=== PATIENT | female | born 1990 | race Caucasian/White ===

== ENCOUNTER 2017-11-29 21:14 | Emergency (ER) | payer OTHER, SELFPAY ==
--- NOTE | 2017-11-29 21:17 | ED_ITS ---
HPI - Extremity Injury (Upper) <ELLA Ng - Last Filed: 11/29/17 22:23> General Chief Complaint: Extremity Injury, Upper Stated Complaint: RIGHT HAND INJURY Time Seen by Provider: 11/29/17 21:17 Source: patient Mode of arrival: ambulatory Limitations: no limitations History of Present Illness HPI narrative: healthy 27-year-old female that is a nonsmoker here for complaint of pain into her right 2nd 3rd and 4th fingers at closed in a door frame earlier today. She denies any other injuries. She reports increased pain with that and movement his fingers. No open lesions. No other concerns or complaints at this time Review of Systems <ELLA Ng - Last Filed: 11/29/17 22:23> Constitutional Denies chills, Denies fever(s), Denies lethargy and Denies weakness Eyes Denies change in vision, Denies eye discharge, Denies irritation and Denies loss of vision ENT Ears, Nose, Mouth, and Throat: Denies change in voice, Denies neck pain and Denies sore throat Cardiovascular Denies chest pain, Denies irregular heart rhythm, Denies lightheadedness, Denies palpitations, Denies dyspnea, Denies dyspnea on exertion and Denies orthopnea Respiratory Denies cough, Denies dyspnea, Denies dyspnea on exertion and Denies wheezing Gastrointestinal Gastrointestinal: Denies abdominal pain, Denies change in bowel habits, Denies diarrhea, Denies nausea and Denies vomiting Genitourinary Denies hematuria, Denies flank pain, Denies urinary incontinence and Denies urinary urgency Musculoskeletal Denies neck pain Comments: pain into right finger Neurologic Denies confusion, Denies loss of vision and Denies weakness Psychiatric Denies anxiety, Denies confusion, Denies depression, Denies homicidal ideation and Denies suicidal ideation Endocrine Denies palpitations Hematologic/Lymphatic Denies easy bruising Allergic/Immunologic Denies wheezing Exam <ELLA Ng - Last Filed: 11/29/17 22:23> Initial Vital Signs Initial Vital Signs: Vital Signs Temperature 97.9 F 11/29/17 21:41 Pulse Rate 69 11/29/17 21:41 Respiratory Rate 18 11/29/17 21:41 Blood Pressure 125/72 11/29/17 21:41 Pulse Oximetry 100 11/29/17 21:41 Const General: cooperative and well developed Nutritional Appearance: well nourished Orientation: alert, awake, oriented x3 and not confused [facility] Mouth: oral mucosae normal and oropharynx normal Eyes General: appearance normal, both eyes and all related structures Eyelids: eyelids normal Conjunctivae: conjunctivae normal Sclera: sclerae normal Pupils: PERRL EOM: EOM intact bilaterally Resp Effort & Inspection: normal respiratory effort, able to speak in complete sentences, no respiratory distress and no use of accessory muscles Auscultation: clear to auscultation bilaterally, no rales, no rhonchi and no wheezes Cardio Rate: regular rate Rhythm: regular rhythm Heart Sounds: no click, no gallops, no murmurs and no rubs Pulses: normal peripheral pulses Skin General: no rashes or lesions noted, No jaundice and No petechiae Neuro General: alert, oriented x3, gait normal and no focal motor deficits Speech: speech normal Extrem Other: right hand with no signs of trauma. No open lesions. No ecchymosis no swelling. Distal sensation is intact. Distal cap refill less than 2 sec. Patient has full range of motion. <Julianne Pagan DO - Last Filed: 11/30/17 06:22> Initial Vital Signs Initial Vital Signs: Vital Signs Temperature 97.9 F 11/29/17 21:41 Pulse Rate 69 11/29/17 21:41 Respiratory Rate 18 11/29/17 21:41 Blood Pressure 125/72 11/29/17 21:41 Pulse Oximetry 100 11/29/17 21:41 Course <ELLA Ng - Last Filed: 11/29/17 22:23> Orders Ordered: ED Orders 11/29/17 21:36 XR hand RT min 3V Stat Vital Signs - 8 hr 11/29/17 21:41 Temperature 97.9 F Pulse Rate 69 Respiratory Rate 18 Blood Pressure 125/72 Pulse Oximetry 100 <DO Jose Langford Last Filed: 11/30/17 06:22> Orders Ordered: ED Orders 11/29/17 21:36 XR hand RT min 3V Stat Vital Signs - 8 hr 11/29/17 21:41 Temperature 97.9 F Pulse Rate 69 Respiratory Rate 18 Blood Pressure 125/72 Pulse Oximetry 100 MDM - Extremity Injury (Upper) <ELLA Ng - Last Filed: 11/29/17 22:23> Imaging Data hand: Radiologist's impression: [address] [address] XRay Report Signed Patient: LUIS ALBERTO MAHER CMR#: [id number] : 1990Acct:[id number] Age/Sex: 27 / FDate of Service: 11/29/17 Loc: ED Accession Number: [id number] Procedure: XR hand RT min 3V Ordering Provider: Asad Hand PROCEDURE: XR HAND RT MIN 3V INDICATIONS: Smashed hand in door, digits 3 and 4 injury TECHNIQUE: 3 views of the hand(s) acquired. COMPARISON: None. FINDINGS: Bones: No fractures or dislocations. Carpal bones are normally aligned. No suspicious bony lesions. Soft tissues: No suspicious soft tissue calcifications. IMPRESSION: No fracture. No osseous lesion. If there are persistent symptoms or clinical suspicion for pathology, then repeat radiographs or advanced imaging (CT, MRI or bone scan) should be considered for further evaluation. Dictated by: Lilibeth Hayes MD, PhD on 11/29/2017 at 21:58 Approved by: Lilibeth Hayes MD, PhD on 11/29/2017 at 21:[address] [facility] Narrative Medical decision making narrative: X-ray of the right hand was obtained and was negative for any acute fractures. Signs symptoms presents as contusions to the fingers of the right hand. Use [id number] ibuprofen as needed for any discomfort. Ice and elevation help knee swelling. Past area. Follow up with primary care provider next week for re-evaluation. For any worsening symptoms return to the emergency room. Discharge Plan Departure Patient Disposition: Home Clinical Impression: Contusion of finger, right Discharge Date/Time: 11/29/17 22:15 Interventions: ED Discharge Assessment Last Done: 11/29/17 22:15 Instructions: DI for Contusion Activity Restrictions/Additional Instructions: X-ray of the right hand was obtained and was negative for any acute fractures. Signs symptoms presents as contusions to the fingers of the right hand. Use [id number] ibuprofen as needed for any discomfort. Ice and elevation help knee swelling. Past area. Follow up with primary care provider next week for re-evaluation. For any worsening symptoms return to the emergency room. Referrals: [facility] [Provider Group] <Julianne Pagan, DO - Last Filed: 11/30/17 06:22> Cosign ED Attending Cosignature Attestation: I was immediately available in the department for consultation. Documentation has been reviewed. I agree with assessment and plan.
--- NOTE | 2017-11-29 21:36 | DI.RAD.S_ITS ---
PROCEDURE: XR HAND RT MIN 3V INDICATIONS: Smashed hand in door, digits 3 and 4 injury TECHNIQUE: 3 views of the hand(s) acquired. COMPARISON: None. FINDINGS: Bones: No fractures or dislocations. Carpal bones are normally aligned. No suspicious bony lesions. Soft tissues: No suspicious soft tissue calcifications. IMPRESSION: No fracture. No osseous lesion. If there are persistent symptoms or clinical suspicion for pathology, then repeat radiographs or advanced imaging (CT, MRI or bone scan) should be considered for further evaluation. Dictated by: Lilibeth Hayes MD, PhD on 11/29/2017 at 21:58 Approved by: Lilibeth Hayes MD, PhD on 11/29/2017 at 21:58
[2017-11-29 21:41] VITALS: BP 125/72; PULSE 69; RESP 18; TEMP 36.6; O2SAT 100; BMI 21.2
== END 2017-11-29 22:15 | disposition home or self-care (01) ==
PROVIDERS: Emergency Provider Nurse Practitioner Family
DX: S60.041A Contusion of right ring finger without damage to nail, initial encounter (principal); S60.031A Contusion of right middle finger without damage to nail, initial encounter; W23.0XXA Caught, crushed, jammed, or pinched between moving objects, initial encounter
CPT/HCPCS: 73130; 99282; 99283

== ENCOUNTER 2018-01-31 17:51 | Emergency (ER) | payer SELFPAY ==
[2018-01-31 17:57] VITALS: BP 142/83; PULSE 106; RESP 15; TEMP 36.6; O2SAT 100; BMI 21.2
--- NOTE | 2018-01-31 18:18 | DI.RAD.S_ITS ---
PROCEDURE: XR FINGER LT MIN 2V INDICATIONS: dog bite, numbness TECHNIQUE: AP hand, 2 views of the left first finger(s) acquired. COMPARISON: None FINDINGS: Bones: No fractures or dislocations. No suspicious bony lesions. Soft tissues: No suspicious soft tissue calcifications. IMPRESSION: No acute fracture. No osseous lesion. If clinical suspicion and/or symptoms persist, further assessment with repeat plainfilms, or advanced imaging (e.g., CT, MRI, or bone scan) may be helpful for further assessment. Dictated by: Shannan Edwards M.D. on 01/31/2018 at 18:55 Approved by: Shannan Edwards M.D. on 01/31/2018 at 18:55
[2018-01-31] MEDS: TET,DIPH,PERTUSS(ACELL),VAC/PF 0.5 ML SYRINGE IM (18:37)
[2018-01-31] MEDS: AMOXICILLIN/CLAV 875/125 MG 1 TAB PO (18:40)
--- NOTE | 2018-01-31 19:43 | ED_ITS ---
HPI - Animal Bite General Chief Complaint: Animal Bite Stated Complaint: GOT IN THE MIDDLE OF DOG FIGHT Time Seen by Provider: 01/31/18 18:14 Source: patient and family Mode of arrival: ambulatory Limitations: no limitations History of Present Illness HPI narrative: 27-year-old nonsmoking female presents with a chief complaint of dog bites suffered when she got between to fighting dogs. One of the dogs was hers and is fully immunized and the other is owned by a friend. She suffered a bite to her left thumb and also was bitten on her right forearm. Her tetanus is not current. The dogs were acting appropriately up until when they started fighting and are able to be observed in the aftermath. Patient does have pain in her left thumb which hurts worse with motion. She is otherwise well and free of complaint MD complaint: animal bite Onset (ago): hour(s) Animal: dog Description of animal: household pet Mechanism: bite Left: hand and Right: forearm Context: animals fighting Treatments prior to arrival: wound dressing(s) Related Data Patient tetanus UTD: No Previous Rx's Medication Instructions Recorded amoxicillin-pot clavulanate 1 tab PO BID #20 tab 01/31/18 [Augmentin] Allergies Allergy/AdvReac Type Severity Reaction Status Date / Time No Known Drug Allergies Allergy Verified 01/31/18 17:57 Review of Systems Review of Systems All systems reviewed & are unremarkable except as noted in HPI and below Constitutional Denies chills, Denies fever(s), Denies lethargy and Denies weakness Eyes Denies change in vision, Denies eye discharge, Denies irritation and Denies loss of vision ENT Ears, Nose, Mouth, and Throat: Denies change in voice, Denies neck pain and Denies sore throat Cardiovascular Denies chest pain, Denies irregular heart rhythm, Denies lightheadedness, Denies palpitations, Denies dyspnea, Denies dyspnea on exertion and Denies orthopnea Respiratory Denies cough, Denies dyspnea, Denies dyspnea on exertion and Denies wheezing Gastrointestinal Gastrointestinal: Denies abdominal pain, Denies change in bowel habits, Denies diarrhea, Denies nausea and Denies vomiting Genitourinary Denies hematuria, Denies flank pain, Denies urinary incontinence and Denies urinary urgency Musculoskeletal Denies neck pain Integumentary/Breasts Denies pruritus, Reports erythema, Denies rash and Reports wounds Neurologic Denies confusion, Denies loss of vision and Denies weakness Psychiatric Denies anxiety, Denies confusion, Denies depression, Denies homicidal ideation and Denies suicidal ideation Endocrine Denies palpitations Hematologic/Lymphatic Denies easy bruising Allergic/Immunologic Denies wheezing Exam Narrative Exam Narrative: 27-year-old female is tearful, obviously upset and some pain Initial Vital Signs Initial Vital Signs: Vital Signs Temperature 97.8 F 01/31/18 17:57 Pulse Rate 106 H 01/31/18 17:57 Respiratory Rate 15 01/31/18 17:57 Blood Pressure 142/83 H 01/31/18 17:57 Pulse Oximetry 100 01/31/18 17:57 Const General: cooperative and well developed Nutritional Appearance: well nourished Orientation: alert, awake, oriented x3 and not confused HENMT Head: normocephalic and atraumatic Ears: external ears normal and TM's normal bilaterally Nose: external nose normal and No nasal discharge Face and sinus: sinuses nontender, face symmetric, no sinus tenderness and No dry mucous membranes Mouth: oral mucosae normal and moist mucous membranes Teeth and gingiva: dentition normal Throat: tonsils normal and uvula midline Chest Chest: normal inspection of the chest Resp Effort & Inspection: normal respiratory effort, able to speak in complete sentences, no respiratory distress and no use of accessory muscles Auscultation: clear to auscultation bilaterally, no rales, no rhonchi and no wheezes GI Inspection: non-distended Palpation: soft, no hepatosplenomegaly, No guarding, No pulsatile mass and No tender Auscultation: normal bowel sounds Back/Spine/Pelvis Back: No CVA tenderness Cervical Spine: cervical ROM normal and No pain with cervical ROM Thoracic/Lumbar Spine: thoracic and lumbar spine normal to inspection Skin Trauma: puncture Neuro General: alert, oriented x3, gait normal and no focal motor deficits Speech: speech normal Extrem Left upper extremity: hand (Patient has a puncture wound to the pad of the left thumb and maybe some cuticle involvement. There is no active bleeding. There is no open or gaping wound.) Course Orders Ordered: ED Orders 01/31/18 18:18 XR finger LT min 2V Stat Discontinued Medications Amoxicillin/Clavulanate Potassium (Augmentin 875-125 Mg) 1 tab PO NOW ONE Stop: 01/31/18 18:19 Last Admin: 01/31/18 18:40 Dose: 1 tab Diphtheria/Tetanus/Acell Pertussis (Adacel) 0.5 ml IM .ONCE ONE Stop: 01/31/18 18:19 Last Admin: 01/31/18 18:37 Dose: 0.5 ml Vital Signs - 8 hr 01/31/18 17:57 Temperature 97.8 F Pulse Rate 106 H Respiratory Rate 15 Blood Pressure 142/83 H Pulse Oximetry 100 Discharge Plan Departure Patient Disposition: Home Clinical Impression: Dog bite Discharge Date/Time: 01/31/18 19:40 Interventions: ED Discharge Assessment Last Done: 01/31/18 19:40 Instructions: DI for Dog Bite Activity Restrictions/Additional Instructions: *You have been diagnosed with [ dog bite ] *What to do: *Take medications as directed *Follow up with your primary care provider in 2-3 days, call for an appointment. Let them know you were seen in the Emergency Department and that we ask that you be seen in follow up *Return to ER if you should have any new, worsening or concerning symptoms , such as [ increasing pain, swelling, drainage or other bothersome symptoms] Prescriptions: New amoxicillin-pot clavulanate [Augmentin] 875-125 mg tablet 1 tab PO BID Qty: 20 RF: 0
== END 2018-01-31 19:40 | disposition home or self-care (01) ==
PROVIDERS: Emergency Provider Emergency Medicine
DX: S61.452A Open bite of left hand, initial encounter (principal); W54.0XXA Bitten by dog, initial encounter
CPT/HCPCS: 73140; 90471; 99282; 99283; 90715

== ENCOUNTER 2019-01-05 21:05 | Emergency (ER) | payer OTHER, MEDICAID, SELFPAY ==
[2019-01-05 21:14] VITALS: BP 143/73; PULSE 96; RESP 18; TEMP 37.2; O2SAT 100; BMI 19.8
[2019-01-05 21:35] LABS: Add Manual Diff / Slide Review NO; Basophils Absolute Auto 100 /uL (0-100); Basophils Percent Auto 0.7 % (0-2); Eosinophils Absolute Auto 0 /uL (0-450); Hematocrit 45.7 % (36-46); Hemoglobin 15.6 g/dL (12.0-16.0); Lymphocytes Absolute Auto 1700 /uL (1100-4500); Lymphocytes Percent Auto 16.3 % (25-40); Mean Corpuscular HGB Conc 34.1 % (30-36); Mean Corpuscular Hemoglobin 29.2 PG (26-34); Mean Corpuscular Volume 85.6 fL (80-100); Monocytes Absolute Auto 1000 /uL (0-900); Monocytes Percent Auto 9.9 % (3-14); Neutrophils Absolute Auto 7500 /uL (1500-7000); Neutrophils Percent Auto 73.1 % (50-75); Platelet Count 385 X10^3/uL (150-400); Red Blood Cell Count 5.34 X10^6/uL (4.0-5.2); Red Cell Distribution Width 13.6 % (11.6-14.8); White Blood Cell Count 10.3 X10^3/uL (4.5-11.0)
[2019-01-05] MEDS: SODIUM CHLORIDE 0.9% 1,000 ML 1000 ML IV (21:38)
[2019-01-05] MEDS: ONDANSETRON 4 MG/2 ML INJ IV (21:38)
[2019-01-05 21:40] LABS: Alanine Aminotransferase 31 IU/L (9-52); Albumin 4.5 g/dL (3.5-5.0); Albumin Globulin Ratio 1.2 (1.0-2.8); Alkaline Phosphatase 87 U/L (38-126); Aspartate Aminotransferase 32 IU/L (14-36); Bilirubin Total 0.3 mg/dL (0.2-1.3); Blood Urea Nitrogen 10 mg/dL (7-17); Calcium 9.1 mg/dL (8.4-10.2); Carbon Dioxide 26 mmol/L (22-32); Chloride 105 mmol/L (98-107); Estimated Glomerular Filt Rate > 60.0 mL/min (>60); Globulin 3.9 g/dL (1.7-4.1); Glucose 101 mg/dL (70-100); HEMOLYSIS < 15 (0-50); Lipase 168 U/L (23-300); Potassium 3.6 mmol/L (3.4-5.1); Sodium 142 mmol/L (137-145); Total Protein 8.4 g/dL (6.3-8.2)
[2019-01-05 21:47] LABS: Influenza A and B by PCR Rapid Negative (Negative)
[2019-01-05 22:00] VITALS: BP 101/79; PULSE 71; RESP 17; O2SAT 100
--- NOTE | 2019-01-05 22:11 | ED.ABDPAIN ---
HPI - Abdominal Pain General Chief Complaint: Abdominal Pain Stated Complaint: VOMITING COUGH FEVER Time Seen by Provider: 01/05/19 21:23 Source: patient Mode of arrival: Ambulatory Limitations: no limitations History of Present Illness HPI narrative: Patient comes emergency department complaining ?not feeling well? for 2 days. She states she has had fevers which were not measured and that she was ?delirious? last night. Patient states she has had a sore throat and a cough, and that she started vomiting today. Patient was seen by medics on [facility] who told her to come to the emergency department to get checked out. Patient's father states the patient has had an opiate problem, but patient refuses to talk about this or offer further information. No other complaints at this time. Related Data Previous Rx's Medication Instructions Recorded amoxicillin-pot clavulanate 1 tab PO BID #20 tab 01/31/18 [Augmentin] ondansetron 4 mg PO Q6H PRN #14 tab 01/06/19 Allergies Allergy/AdvReac Type Severity Reaction Status Date / Time No Known Drug Allergies Allergy Verified 01/05/19 21:16 Review of Systems Constitutional Constitutional: Denies chills, Denies fatigue, Denies fever(s), Denies frequent falls, Denies lethargy and Denies weakness Eyes Eyes: Denies change in vision, Denies eye discharge, Denies irritation and Denies loss of vision ENT Ears, Nose, Mouth, and Throat: Denies change in voice, Denies dizziness, Denies neck pain, Denies sore throat and Denies throat swelling Comments: Rhinorrhea Cardiovascular Cardiovascular: Denies chest pain, Denies irregular heart rhythm, Denies lightheadedness, Denies palpitations, Denies dyspnea, Denies dyspnea on exertion and Denies orthopnea Respiratory Respiratory: Reports cough, Denies dyspnea, Denies dyspnea on exertion and Denies wheezing Gastrointestinal Gastrointestinal: Denies abdominal pain, Denies change in bowel habits, Denies diarrhea, Reports nausea and Reports vomiting Genitourinary Genitourinary: Denies hematuria, Denies flank pain, Denies urinary incontinence and Denies urinary urgency Musculoskeletal Musculoskeletal: Denies back pain, Denies muscle weakness, Denies neck pain, Denies numbness and Denies tingling Integumentary/Breasts Skin/Breast: Denies pruritus, Denies erythema, Denies rash and Denies wounds Neurologic Neurologic: Denies behavioral changes, Denies confusion, Denies dizziness, Denies frequent falls, Denies loss of vision, Denies numbness, Denies tingling and Denies weakness Psychiatric Psychiatric: Denies anxiety, Denies behavioral changes, Denies confusion, Denies depression, Denies homicidal ideation and Denies suicidal ideation Endocrine Endocrine: Denies fatigue, Denies flushing and Denies palpitations Hematologic/Lymphatic Hematologic/Lymphatic: Denies easy bruising Allergic/Immunologic Allergic/Immunologic: Denies urticaria, Denies throat swelling and Denies wheezing Patient History Medical History Healthy adult (Acute) Surgical History No pertinent past surgical history (Acute) Social History Smoking Status: Never smoker substance use type: opiates Substance Use Type: does not use Exam Initial Vital Signs Initial Vital Signs: Vital Signs Temperature 98.9 F 01/05/19 21:14 Pulse Rate 96 H 01/05/19 21:14 Respiratory Rate 18 01/05/19 21:14 Blood Pressure 143/73 H 01/05/19 21:14 Pulse Oximetry 100 01/05/19 21:14 Const General: cooperative and well developed Nutritional Appearance: well nourished Orientation: alert, awake, oriented x3 and not confused HENRI Head: normocephalic and atraumatic Ears: external ears normal and TM's normal bilaterally Nose: external nose normal and No nasal discharge Face and sinus: sinuses nontender, face symmetric, no sinus tenderness and No dry mucous membranes Mouth: oral mucosae normal and moist mucous membranes Teeth and gingiva: dentition normal Throat: tonsils normal and uvula midline Eyes General: appearance normal, both eyes and all related structures Eyelids: eyelids normal Conjunctivae: conjunctivae normal Sclera: sclerae normal Pupils: PERRL EOM: EOM intact bilaterally Neck Neck: normal visual inspection, trachea midline, No lymphadenopathy, No midline deformity and No JVD Lymphatic: No lymphedema Chest Chest: normal inspection of the chest Resp Effort & Inspection: normal respiratory effort, able to speak in complete sentences, no respiratory distress and no use of accessory muscles Auscultation: clear to auscultation bilaterally, no rales, no rhonchi and no wheezes Cardio Rate: regular rate Rhythm: regular rhythm Heart Sounds: no click, no gallops, no murmurs and no rubs Pulses: normal peripheral pulses GI Inspection: non-distended Palpation: soft, no hepatosplenomegaly, No guarding, No pulsatile mass and No tender Auscultation: normal bowel sounds Back/Spine/Pelvis Back: No CVA tenderness Cervical Spine: cervical ROM normal and No pain with cervical ROM Thoracic/Lumbar Spine: thoracic and lumbar spine normal to inspection Skin General: no rashes or lesions noted, No jaundice and No petechiae Neuro General: alert, oriented x3, gait normal and no focal motor deficits Speech: speech normal Extrem General: full ROM, no clubbing, cyanosis or edema, no pedal edema and no calf tenderness Psych Appearance: well kempt Mental Status: mental status grossly normal Attitude: cooperative Thought Content: normal and suicidality Judgment: judgment good Course Course Course Narrative: Patient was treated symptomatically in the emergency department IV fluids, Zofran, Compazine, and Benadryl. She reported not feeling any better, although she was found to be bright-eyed, sitting up in bed, and tolerating p.o. fluids without any retching. I discussed with patient that at this point she most likely has a virus. Her labs are normal and she is afebrile here. Her abdominal exam is benign. I have discussed with the patient that if there is any relation to opiate use, it will be impossible for me to be able to accurately represent to this to the patient, or to help her to get better, as she has not been willing to discuss at all whether she is currently engaged in opiate abuse or withdrawing from opiates. We have discussed clear liquid diet for the next 24 hours and dietary advancement following that, should the patient tolerate clears. We have discussed the usual indications for return. Nursing staff did report to me that the patient left her paperwork and her prescription for antiemetics. Nursing staff did try to call the patient, but stated that the patient answered, said something, and hung up on the nurse. Orders Ordered: Discontinued Medications Diphenhydramine HCl (Benadryl) 25 mg IV NOW ONE Stop: 01/05/19 22:14 Last Admin: 01/05/19 22:19 Dose: 25 mg Documented by: CARINA Sodium Chloride (Normal Saline 0.9%) 1,000 mls @ 1,000 mls/hr IV BOLUS ONE Stop: 01/05/19 22:25 Last Infusion: 01/05/19 23:11 Dose: 0 mls/hr Documented by: Admin: 01/05/19 21:38 Dose: 1,000 mls/hr Documented by: CARINA Ondansetron HCl (Zofran) 4 mg IV NOW ONE Stop: 01/05/19 21:27 Last Admin: 01/05/19 21:38 Dose: 4 mg Documented by: CARINA Ondansetron HCl (Zofran Odt Prepack) 1 bottle MISC SEEINSTR ONE Stop: 01/06/19 00:03 Last Admin: 01/06/19 00:18 Dose: Not Given Documented by: CARINA Prochlorperazine (Compazine) 10 mg IV NOW ONE Stop: 01/05/19 22:14 Last Admin: 01/05/19 22:17 Dose: 10 mg Documented by: CARINA Promethazine HCl (Phenergan 25 Mg Prepack) 1 bottle MISC SEEINSTR ONE Stop: 01/06/19 00:03 Last Admin: 01/06/19 00:18 Dose: Not Given Documented by: CARINA Vital Signs Vital signs: Vital Signs - 8 hr 01/05/19 22:30 01/06/19 00:09 Temperature 98.7 F Pulse Rate 78 73 Respiratory Rate 18 18 Blood Pressure 130/70 Blood Pressure [Left Arm] 110/50 L Pulse Oximetry 100 99 MDM - Abdominal Pain Medical Records Attestation: I reviewed the patient's medical records. Lab Data Attestation: I reviewed the patient's lab results. Result diagrams: 01/05/19 21:15 01/05/19 21:15 Labs: Lab Results 01/05/19 01/05/19 01/05/19 Range/Units 21:15 21:15 21:15 WBC 10.3 (4.5-11.0) X10^3/uL RBC 5.34 H (4.0-5.2) X10^6/uL Hgb 15.6 (12.0-16.0) g/dL Hct 45.7 (36-46) % MCV 85.6 (80-100) fL MCH 29.2 (26-34) PG MCHC 34.1 (30-36) % RDW 13.6 (11.6-14.8) % Plt Count 385 (150-400) X10^3/uL Neut % (Auto) 73.1 (50-75) % Lymph % (Auto) 16.3 L (25-40) % [place] % (Auto) 9.9 (3-14) % Eos % (Auto) 0.0 L (2-4) % Baso % (Auto) 0.7 (0-2) % Neut # (Auto) 7500 H (8698-7094) /uL Lymph # (Auto) 1700 (0195-0797) /uL [place] # (Auto) 1000 H (0-900) /uL Eos # (Auto) 0 (0-450) /uL Baso # (Auto) 100 (0-100) /uL Sodium 142 (137-145) mmol/L Potassium 3.6 (3.4-5.1) mmol/L Chloride 105 (98-107) mmol/L Carbon Dioxide 26 (22-32) mmol/L BUN 10 (7-17) mg/dL Creatinine 0.50 L (0.52-1.04) mg/dL Estimated GFR > 60.0 (>60) mL/min BUN/Creatinine Ratio 20.0 (6-22) Glucose 101 H (70-100) mg/dL Calcium 9.1 (8.4-10.2) mg/dL Total Bilirubin 0.3 (0.2-1.3) mg/dL AST 32 (14-36) IU/L ALT 31 (9-52) IU/L Alkaline Phosphatase 87 (38-126) U/L Total Protein 8.4 H (6.3-8.2) g/dL Albumin 4.5 (3.5-5.0) g/dL Globulin 3.9 (1.7-4.1) g/dL Albumin/Globulin Ratio 1.2 (1.0-2.8) Lipase 168 (23-300) U/L Influenza A & B (PCR) Negative (Negative) Point of care testing: Point of Care Testing Test Results Negative Rapid Strep A Negative Urine Dip Bedside Urine Ketone +/- 5 Urine Specific [place] 1.015 Bedside Urine Occult Blood - Negative Bedside Urine pH 6.0 Bedside Urine Protein + 30 Bedside Urine Urobilinogen - Negative Bedside Urine Nitrite - Negative Bedside Urine Leukocytes - Negative Esterase Discharge Plan Departure Patient Disposition: Home Clinical Impression: Gastroenteritis Discharge Date/Time: 01/06/19 00:09 Instructions: DI for Viral Gastroenteritis -- Adult Activity Restrictions/Additional Instructions: Your labs are normal tonight. There is no evidence of a serious condition, including bacterial infection or sepsis, at this time. Please take the nausea medicine, as needed. Take only clear liquids by mouth until at least tomorrow afternoon. If you tolerate these, then you may try taking simple food, like Saltine crackers, Ramen noodles, or white rice/toes. Prescriptions: New ondansetron 4 mg tablet,disintegrating 4 mg PO Q6H PRN (Reason: nausea and vomiting) Qty: 14 RF: 0 No Action amoxicillin-pot clavulanate [Augmentin] 875-125 mg tablet 1 tab PO BID Qty: 20 RF: 0
[2019-01-05 22:17] VITALS: BP 124/82; PULSE 73
[2019-01-05] MEDS: PROCHLORPERAZINE 10 MG/2 ML VIAL IV (22:17)
[2019-01-05] MEDS: diphenhydrAMINE 50 MG/ML VIAL 25 MG IV (22:19)
[2019-01-05 22:30] VITALS: BP 110/50; PULSE 78; RESP 18; O2SAT 100
[2019-01-06 00:09] VITALS: BP 130/70; PULSE 73; RESP 18; TEMP 37.1; O2SAT 99
--- NOTE | 2019-01-06 00:18 | PC.NURSE ---
patient discharged and left discharge packet and prescription in room. I called the patient to let her know that she left the packet and prescription. patient hung up the phone after I told her she left packet and prescription and did not specify wether she was coming back or not. provider aware.
== END 2019-01-06 00:09 | disposition home or self-care (01) ==
PROVIDERS: Emergency Provider Emergency Medicine
DX: K52.9 Noninfective gastroenteritis and colitis, unspecified (principal); R05 Cough; J02.9 Acute pharyngitis, unspecified; R11.2 Nausea with vomiting, unspecified
CPT/HCPCS: 36415; 80053; 81003; 81025; 83690; 85025; 87502; 87880; 96361; 96374; 96375; 99283; 99284; J0780; J1200; J2405